=== PATIENT | male | born 1955 | race Caucasian/White ===

== ENCOUNTER 2017-01-18 18:27 | Emergency (ER) | payer MEDICARE, OTHER ==
[~2017-01-18] VITALS: Ht 170.2 cm; Wt 104.3 kg
[2017-01-18] MEDS ORDERED: PANT40TA4 PO (19:04)
[2017-01-18] MEDS ORDERED: ASPI1CPM PO (19:04)
[2017-01-18] MEDS ORDERED: INSU100V7 SQ (19:04)
[2017-01-18] MEDS ORDERED: TAMS0.4C34 PO (19:04)
[2017-01-18] MEDS ORDERED: ATOR80TA PO (19:04)
[2017-01-18] MEDS ORDERED: INSU100C SQ (19:04)
[2017-01-18] MEDS ORDERED: MAG355OR18 PO (19:04)
[2017-01-18] MEDS ORDERED: AMLO10TA2 PO (19:04)
[2017-01-18] MEDS ORDERED: METO100T3 PO (19:04)
[2017-01-18] MEDS ORDERED: CLOP75TA15 PO (19:04)
[2017-01-18] MEDS ORDERED: ALBU8.5H8 IH (19:04)
[2017-01-18] MEDS ORDERED: BLOO-140 IN (19:04)
[2017-01-18] MEDS ORDERED: IV NORMAL SALINE 1000 ML BAG IV ONE (19:15)
[2017-01-18 19:58] LABS: BASOPHILS % (AUTO) 0.4 % (0.0-2.0); EOSINOPHILS # (AUTO) 0.3 K/uL (0.0-0.7); EOSINOPHILS % (AUTO) 3.3 % (0.0-7.0); HEMATOCRIT 47.2 % (40-50); HEMOGLOBIN 15.2 G/DL (14.0-18.0); LYMPHOCYTES # (AUTO) 2.5 K/UL (0.8-4.8); LYMPHOCYTES % (AUTO) 28.6 % (20.5-51.5); MEAN CORPUSCULAR HEMOGLOBIN 29.7 UUG (27.0-31.0); MEAN CORPUSCULAR HGB CONC 32 g/dL (32.0-37.0); MEAN CORPUSCULAR VOLUME 92.1 FL (82.0-92.0); MONOCYTES # (AUTO) 0.6 K/UL (0.1-1.30); MONOCYTES % (AUTO) 6.6 % (0.0-11.0); NEUTROPHILS # (AUTO) 5.3 K/UL (1.8-8.9); NEUTROPHILS % (AUTO) 61.1 % (38.5-71.5); PLATELET COUNT (AUTO) 207 K/UL (150-450); RED BLOOD CELL COUNT(AUTO) 5.13 MIL/UL (4.7-6.1); WHITE BLOOD COUNT (AUTO) 8.7 K/UL (4.0-11.2)
[2017-01-18 20:05] LABS: CREATININE 1.1 mg/dL (0.6-1.3); POTASSIUM 4.3 mmol/L (3.5-5.1)
[2017-01-18 20:11] LABS: BILIRUBIN,DIRECT 0.1 mg/dL (0.0-0.2); BILIRUBIN,TOTAL 0.5 mg/dL (0.2-1.0); TOTAL PROTEIN, SERUM 7.2 g/dL (6.4-8.2)
--- NOTE | 2017-01-18 20:28 | NUR ---
DR. ANTOINE CAVAZOS.
[2017-01-18 22:04] VITALS: BP 138/83
== END 2017-01-18 22:05 | disposition home or self-care (01) ==
LOC: ER 18:32
DX: E11.40 Type 2 diabetes mellitus with diabetic neuropathy, unspecified (principal); Z79.4 Long term (current) use of insulin; Z79.82 Long term (current) use of aspirin; I10 Essential (primary) hypertension; I25.10 Atherosclerotic heart disease of native coronary artery without angina pectoris; J45.909 Unspecified asthma, uncomplicated; N17.9 Acute kidney failure, unspecified; Z95.0 Presence of cardiac pacemaker; Z86.73 Personal history of transient ischemic attack (TIA), and cerebral infarction without residual deficits; Z95.5 Presence of coronary angioplasty implant and graft
CPT/HCPCS: 71010; 80048; 80076; 83605; 83690; 84484; 85025; 87040; 93005; 96360; 99285; A4663; J7030; 36415; 70030-TC

== ENCOUNTER 2017-01-23 19:12 | Inpatient (IN) | payer MEDICARE, OTHER ==
[~2017-01-23] VITALS: Ht 170.2 cm; Wt 111.1 kg
[~2017-01-23 19:12] MED LIST: ALBU8.5H8 IH; AMLO10TA2 PO; ASPI1CPM PO; ATOR80TA PO; BLOO-140 IN; CLOP75TA15 PO; INSU100C SQ; INSU100V7 SQ; MAG355OR18 PO; METO100T3 PO; PANT40TA4 PO; TAMS0.4C34 PO
[2017-01-23 20:07] LABS: *BILIRUBIN,URIN NEGATIVE (NEGATIVE); *BLOOD, URINE NEGATIVE (NEGATIVE); *CLARITY,URINE CLEAR (CLEAR); *COLOR,URINE YELLOW (YELLOW); *KETONES,URINE NEGATIVE (NEGATIVE); *PROTEIN,URINE NEGATIVE (NEGATIVE); *UROBILINOGEN,URINE 0.2 E.U./dl (NORMAL); LEUKOCYTE ESTERASE ,URINE NEGATIVE (NEGATIVE); NITRITE, URINE NEGATIVE (NEGATIVE); PH,URINE 5.5 (5.0-8.0)
[2017-01-23 20:25] LABS: BASOPHILS # (AUTO) 0.1 K/uL (0.0-8.0); BASOPHILS % (AUTO) 0.6 % (0.0-2.0); EOSINOPHILS # (AUTO) 0.3 K/uL (0.0-0.7); EOSINOPHILS % (AUTO) 3.2 % (0.0-7.0); HEMOGLOBIN 14.7 G/DL (14.0-18.0); LYMPHOCYTES # (AUTO) 2.6 K/UL (0.8-4.8); LYMPHOCYTES % (AUTO) 28.6 % (20.5-51.5); MEAN CORPUSCULAR HEMOGLOBIN 31.2 UUG (27.0-31.0); MEAN CORPUSCULAR HGB CONC 33 g/dL (32.0-37.0); MEAN CORPUSCULAR VOLUME 93.2 FL (82.0-92.0); MONOCYTES # (AUTO) 0.6 K/UL (0.1-1.30); NEUTROPHILS # (AUTO) 5.6 K/UL (1.8-8.9); NEUTROPHILS % (AUTO) 60.6 % (38.5-71.5); PLATELET COUNT (AUTO) 251 K/UL (150-450); RED BLOOD CELL COUNT(AUTO) 4.73 MIL/UL (4.7-6.1); WHITE BLOOD COUNT (AUTO) 9.2 K/UL (4.0-11.2)
[2017-01-23 20:29] LABS: CREATININE 1.2 mg/dL (0.6-1.3); POTASSIUM 4.1 mmol/L (3.5-5.1)
[2017-01-23 20:33] LABS: UGLUCOSE 2+ (NEGATIVE)
[2017-01-23 20:35] LABS: WBC,URINE NONE SEEN /HPF (0-3)
[2017-01-23 20:36] LABS: BILIRUBIN,DIRECT 0.1 mg/dL (0.0-0.2); BILIRUBIN,TOTAL 0.5 mg/dL (0.2-1.0); TOTAL PROTEIN, SERUM 7.3 g/dL (6.4-8.2)
--- NOTE | 2017-01-23 21:41 | NUR ---
JONNY speaking with Dr. AGUILAR
--- NOTE | 2017-01-23 22:44 | NUR ---
Pt. admitted to TELE, under care of Dr. AGUILAR Belongs List completed
--- NOTE | 2017-01-23 23:10 | NUR ---
Received patient from ED via gurney awake and alert in no acute distress, admission assessment done. Page Dr. Cha for admission orders.
[2017-01-24] VITALS: BP 129/78
--- NOTE | 2017-01-24 00:10 | NUR ---
Second called placed for Dr. Cha for admission orders. Patient quietly sleeping at this time SR on tele monitor with BBB HR 60'S, BP stable 129/78 pt afebrile with no distress noted. Continue to await call back from doctor
[2017-01-24 04:22] VITALS: BP 125/69
[2017-01-24] MEDS ORDERED: ALPRAZOLAM 0.25 MG TABLET PO PRN (05:30)
--- NOTE | 2017-01-24 05:45 | NUR ---
Dr. Cha returned paged and orders were received. patient slepted well during the night with status unchanged, continue to monitor and with POC.
--- NOTE | 2017-01-24 07:30 | NUR ---
PT RECEIVED IN BED SLEEPING,V/S ARE STABLE ,NO S/S OF SOB NOTED.BREAKFAST SERVED .TOLERATED WELL.
[2017-01-24] MEDS ORDERED: ALBUTEROL SULFATE 8 GM HFA.AER.AD IH PRN (07:45)
[2017-01-24] MEDS ORDERED: AMLODIPINE 10 MG TABLET PO PRN (07:45)
[2017-01-24] MEDS ORDERED: ALBUTEROL SULFATE 2.5 MG/3 ML NEBU NEB PRN (08:30)
[2017-01-24] MEDS: TAMSULOSIN HCL 0.4 MG CAP.SR.24H PO SCH (08:31)
[2017-01-24] MEDS: CLOPIDOGREL 75 MG TABLET PO SCH (08:31)
[2017-01-24] MEDS: PANTOPRAZOLE SODIUM 40 MG TABLET.DR PO SCH ×2 (08:31→16:27)
[2017-01-24] MEDS: METOPROLOL TARTRATE 100 MG TABLET PO SCH ×2 (08:31→16:27)
[2017-01-24] MEDS ORDERED: BLOOD SUGAR DIAGNOSTIC 1 EACH STRIP VI SCH (09:00)
[2017-01-24] MEDS: ASPIRIN/DIPYRIDAMOLE 25/200 MG CAPSULE PO SCH ×2 (09:00→16:28)
--- NOTE | 2017-01-24 09:00 | NUR ---
PT SEEN BY DR FELDER
[2017-01-24] MEDS ORDERED: DEXTROSE 50% 50 ML DISP.SYRIN IV PRN (09:15)
[2017-01-24] MEDS: BLOOD SUGAR DIAGNOSTIC 1 EACH STRIP VI SCH ×4 (09:25→20:36)
[2017-01-24 11:00] VITALS: BP 120/54
[2017-01-24] MEDS: INSULIN REGULAR, HUMAN 300 UNIT/3 ML VIAL SQ PRN ×3 (11:43→20:34)
[2017-01-24 15:03] VITALS: BP 136/83
--- NOTE | 2017-01-24 17:55 | NUR ---
PT IS RESTING AT THIS TIME ,NO NEW NEEDS NOTED.SINUS ON TELE
--- NOTE | 2017-01-24 19:00 | NUR ---
RECEIVED IN BED ALERT ORIENTED, CONTINENT OF BOWEL AND BLADDER, NO SOB NO CHEST PAIN NOTED, NO COMPLAIN OF PAIN AT THIS TIME. CONT TO MONITOR.
[2017-01-24 20:00] VITALS: BP 110/60
[2017-01-24] MEDS: ATORVASTATIN 40 MG TABLET PO SCH (20:25)
[2017-01-24] MEDS: MAG HYDROX/AL HYDROX/SIMETH 30 ML LIQUID UDC PO SCH (20:26)
[2017-01-24] MEDS: INSULIN DETEMIR 300 UNIT/3 ML CARTRIDGE SQ SCH (20:34)
[2017-01-24] MEDS ORDERED: INSULIN GLARGINE,HUM 300 UNITS/3 ML CARTRIDGE SQ SCH (21:00)
[2017-01-24] MEDS: ALPRAZOLAM 0.5 MG TABLET PO PRN (21:06)
[2017-01-25] VITALS: BP 120/72
[2017-01-25 04:00] VITALS: BP 142/74
--- NOTE | 2017-01-25 05:45 | NUR ---
PATIENT SLEPT MOST OF THE NIGHT, CPAP WAS ON ALL NIGHT, NO COMPLAIN OF PAIN, NO SOB NO CHEST PAIN NOTED, USES URINAL FOR BLADDER ELIMINATION, PATIENT RYTHM IS SINUS RYTHM, CONT TO MONITOR.
[2017-01-25] MEDS: BLOOD SUGAR DIAGNOSTIC 1 EACH STRIP VI SCH ×4 (06:29→20:48)
[2017-01-25] MEDS: INSULIN REGULAR, HUMAN 300 UNIT/3 ML VIAL SQ PRN ×3 (07:11→20:53)
[2017-01-25] MEDS: INSULIN LISPRO 1000 UNITS/10 ML VIAL(HUMALOG) SQ SCH ×3 (07:37→17:03)
--- NOTE | 2017-01-25 07:40 | NUR ---
RECEIVED IN BED ALERT ORIENTED, CONTINENT OF BOWEL AND BLADDER, NO SOB NO CHEST PAIN NOTED, NO COMPLAIN OF PAIN AT THIS TIME. CONT TO MONITOR.
[2017-01-25] MEDS: CLOPIDOGREL 75 MG TABLET PO SCH (08:02)
[2017-01-25] MEDS: ASPIRIN/DIPYRIDAMOLE 25/200 MG CAPSULE PO SCH ×2 (08:02→16:42)
[2017-01-25] MEDS: TAMSULOSIN HCL 0.4 MG CAP.SR.24H PO SCH (08:02)
[2017-01-25] MEDS: METOPROLOL TARTRATE 100 MG TABLET PO SCH ×2 (08:02→16:42)
[2017-01-25] MEDS: PANTOPRAZOLE SODIUM 40 MG TABLET.DR PO SCH ×2 (08:02→16:42)
[2017-01-25 11:03] VITALS: BP 128/70
[2017-01-25 15:12] VITALS: BP 131/56
--- NOTE | 2017-01-25 17:46 | NUR ---
PT IS RESTING AT THIS TIME ,NO NEW NEEDS NOTED.
--- NOTE | 2017-01-25 19:00 | NUR ---
RECEIVED PATIENT IN BED, ALERT ORIENTED, NO SOB NO CHEST PAIN NOTED, NO S/S OF HYPO/HYPERGLYCEMIA NOTED, CALL LIGHT WITHIN REACH. CONT TO MONITOR. PATIENT REQUEST XANAX FOR SLEEP, WILL MEDICATION PATIENT PRESCRIBED TIME.
[2017-01-25 19:52] VITALS: BP 151/68
[2017-01-25] MEDS: ALPRAZOLAM 0.5 MG TABLET PO PRN (20:41)
[2017-01-25] MEDS: MAG HYDROX/AL HYDROX/SIMETH 30 ML LIQUID UDC PO SCH (20:43)
[2017-01-25] MEDS: ATORVASTATIN 40 MG TABLET PO SCH (20:43)
--- NOTE | 2017-01-25 21:00 | NUR ---
PATIENT REFUSED MAALOX MEDICATION STATED HE DOESNT NEED IT.
[2017-01-25] MEDS: INSULIN DETEMIR 300 UNIT/3 ML CARTRIDGE SQ SCH (21:06)
--- NOTE | 2017-01-25 22:07 | NUR ---
Pt placed on BIPAP Vision per request. Settings IPAP 20, EPAP 12, set resp. rate 12 and FIO2-21%. No resp. distress noted. Pt to be monitored throughout the shift. Vision alarm parameters have been checked and remain audible at this time.
[2017-01-26 04:11] VITALS: BP 139/76
--- NOTE | 2017-01-26 05:47 | NUR ---
PATIENT SLEPT MOST OF THE NIGHT, NO SOB NO CHEST PAIN, NO COMPLAIN OF PAIN NOR DISCOMFORT, BIPAP WAS USED MOST OF THE NIGHT, NO S/S OF DISTRESS.
[2017-01-26] MEDS: BLOOD SUGAR DIAGNOSTIC 1 EACH STRIP VI SCH ×4 (06:16→20:37)
--- NOTE | 2017-01-26 06:39 | NUR ---
Pt removed from BIPAP per pt request. Pt is on room air and is in no resp. distress noted at this time. Pt is asleep at this time.
[2017-01-26] MEDS: TAMSULOSIN HCL 0.4 MG CAP.SR.24H PO SCH (08:12)
[2017-01-26] MEDS: PANTOPRAZOLE SODIUM 40 MG TABLET.DR PO SCH ×2 (08:12→17:25)
[2017-01-26] MEDS: METOPROLOL TARTRATE 100 MG TABLET PO SCH ×2 (08:12→17:26)
[2017-01-26] MEDS: ASPIRIN/DIPYRIDAMOLE 25/200 MG CAPSULE PO SCH ×2 (08:13→17:26)
[2017-01-26] MEDS: CLOPIDOGREL 75 MG TABLET PO SCH (08:13)
[2017-01-26] MEDS: INSULIN LISPRO 1000 UNITS/10 ML VIAL(HUMALOG) SQ SCH ×3 (08:16→17:28)
[2017-01-26] MEDS: INSULIN REGULAR, HUMAN 300 UNIT/3 ML VIAL SQ PRN ×4 (08:18→20:43)
[2017-01-26 11:10] VITALS: BP 148/74
--- NOTE | 2017-01-26 13:00 | NUR ---
SPOKE WITH SEKOU AT [facility], & ALL INFORMATION FAXED. WALL SCRAPER SUMA RETURNED THE CALL & STATED THAT IT LOOKS LIKE HE USED UP ALL SNF DAYS. UNABLE TO ACCEPT PATIENT AT THIS TIME.
[2017-01-26 16:04] VITALS: BP 138/80
--- NOTE | 2017-01-26 19:00 | NUR ---
RECEIVED PATIENT DANGLE FEET FROM THE BED, NO SOB NO CHEST PAIN, NO S/S OF HYPO/PERGYLCEMIA NOTED, CALL LIGHT WITHIN REACH.
--- NOTE | 2017-01-26 19:04 | NUR ---
PT IS LAYING IN BED COMFORTABLY. NO S/S OF RESPIRATORY DISTRESS NOTED. NO PAIN NOTED. ALL SAFETY NEEDS ARE MET. IV INTACT/PATENT. NO S/S OF HYPERGLYCEMIA.
[2017-01-26 19:30] VITALS: BP 144/86
[2017-01-26] MEDS: ATORVASTATIN 40 MG TABLET PO SCH (20:33)
[2017-01-26] MEDS: ALPRAZOLAM 0.5 MG TABLET PO PRN (20:35)
[2017-01-26] MEDS: INSULIN DETEMIR 300 UNIT/3 ML CARTRIDGE SQ SCH (20:43)
[2017-01-26] MEDS: MAG HYDROX/AL HYDROX/SIMETH 30 ML LIQUID UDC PO SCH (21:00)
--- NOTE | 2017-01-27 04:57 | NUR ---
PATIENT SLEPT MOST OF THE NIGHT, USED BIPAP TOLERATE WELL, NO SOB NO CHEST PAIN NOTED, CALL LIGHT WITHIN REACH. CONT TO MONITOR.
[2017-01-27 05:13] VITALS: BP 103/67
[2017-01-27] MEDS: BLOOD SUGAR DIAGNOSTIC 1 EACH STRIP VI SCH (06:14)
--- NOTE | 2017-01-27 06:20 | NUR ---
Pt removed from BIPAP per pt request. Pt is on room air and is in no resp. distress noted at this time. RN WG aware and notified.
[2017-01-27] MEDS: INSULIN REGULAR, HUMAN 300 UNIT/3 ML VIAL SQ PRN (08:18)
[2017-01-27] MEDS: INSULIN LISPRO 1000 UNITS/10 ML VIAL(HUMALOG) SQ SCH (08:19)
--- NOTE | 2017-01-27 08:30 | NUR ---
PT. REFUSING TO WAIT FOR SNF PLACEMENT--FOR CONTINUED PT. FOR STRENGTHENING--SO WILL SIGN OUT AMA. DR. FELDER CALLED---AWAITING CALL BACK. PT. STATES THAT HE WILL GO DIRECTLY TO PCP OFFICE FROM HOSPITAL. [id number]--PT. DISCHARGED TO FRIEND VIA W/C TO PRIVATE CAR TO GO TO PCP OFFICE.
== END 2017-01-27 08:45 | disposition left against medical advice (07) | DRG 57 ==
LOC: ER 19:13 → TELE 22:49 → MED 01-25 16:25
PROVIDERS: ADMIT Internal Medicine; ATTEND Internal Medicine
PROC: 5A09457 Assistance with Respiratory Ventilation, 24-96 Consecutive Hours, Continuous Positive Airway Pressure (ICD-10-PCS; principal; 2017-01-24)
DX: I69.354 Hemiplegia and hemiparesis following cerebral infarction affecting left non-dominant side (principal); E11.65 Type 2 diabetes mellitus with hyperglycemia; I11.9 Hypertensive heart disease without heart failure; E66.01 Morbid (severe) obesity due to excess calories; I69.321 Dysphasia following cerebral infarction; I69.392 Facial weakness following cerebral infarction; Z79.02 Long term (current) use of antithrombotics/antiplatelets; Z79.899 Other long term (current) drug therapy; Z79.4 Long term (current) use of insulin; R26.9 Unspecified abnormalities of gait and mobility; Z68.38 Body mass index [BMI] 38.0-38.9, adult; R29.6 Repeated falls; G47.30 Sleep apnea, unspecified; I25.10 Atherosclerotic heart disease of native coronary artery without angina pectoris; Z95.0 Presence of cardiac pacemaker; N40.0 Benign prostatic hyperplasia without lower urinary tract symptoms; I70.0 Atherosclerosis of aorta; J45.909 Unspecified asthma, uncomplicated; I51.7 Cardiomegaly
CPT/HCPCS: 36415; 70030-TC; 70450; 71010; 84443; 85025; 85730; 93005; 94660; A4663; J1815

== ENCOUNTER 2017-01-29 15:04 | Emergency (ER) | payer MEDICARE, OTHER ==
[~2017-01-29] VITALS: Ht 162.6 cm; Wt 86.2 kg
--- NOTE | 2017-01-29 15:20 | NUR ---
CHLOE, [facility] WELDING SUPERVISOR SPOKE W/ PT IN WAITING ROOM PER PT REQUEST. PT REQUESTED TO BE ADMITTED TO HOSPITAL AND BE PLACED IN A RETIREMENT, ER AWARE.
[2017-01-29 16:14] LABS: POTASSIUM 4.1 mmol/L (3.5-5.1)
[2017-01-29 16:15] LABS: BASOPHILS % (AUTO) 0.3 % (0.0-2.0); EOSINOPHILS # (AUTO) 0.4 K/uL (0.0-0.7); EOSINOPHILS % (AUTO) 3.2 % (0.0-7.0); HEMATOCRIT 45.2 % (40-50); HEMOGLOBIN 15.1 G/DL (14.0-18.0); LYMPHOCYTES # (AUTO) 2.1 K/UL (0.8-4.8); LYMPHOCYTES % (AUTO) 18.8 % (20.5-51.5); MEAN CORPUSCULAR HGB CONC 33 g/dL (32.0-37.0); MEAN CORPUSCULAR VOLUME 92.7 FL (82.0-92.0); MONOCYTES # (AUTO) 0.7 K/UL (0.1-1.30); MONOCYTES % (AUTO) 6.2 % (0.0-11.0); NEUTROPHILS # (AUTO) 7.9 K/UL (1.8-8.9); NEUTROPHILS % (AUTO) 71.5 % (38.5-71.5); PLATELET COUNT (AUTO) 216 K/UL (150-450); RED BLOOD CELL COUNT(AUTO) 4.88 MIL/UL (4.7-6.1); WHITE BLOOD COUNT (AUTO) 11.1 K/UL (4.0-11.2)
[2017-01-29 16:26] LABS: BILIRUBIN,DIRECT 0.1 mg/dL (0.0-0.2); BILIRUBIN,TOTAL 0.8 mg/dL (0.2-1.0); TOTAL PROTEIN, SERUM 7.6 g/dL (6.4-8.2)
[2017-01-29] MEDS ORDERED: METO100T7 PO (16:26)
[2017-01-29] MEDS ORDERED: METF850T2 PO (16:26)
[2017-01-29] MEDS ORDERED: NITR0.4T SL (16:26)
[2017-01-29] MEDS ORDERED: [UNRECOGNIZED DRUG - OTHER] IH (16:26)
[2017-01-29] MEDS ORDERED: ICOS1CAP PO (16:26)
[2017-01-29] MEDS ORDERED: CARV3.122 PO (16:26)
[2017-01-29] MEDS ORDERED: LISI40TA4 PO (16:26)
[2017-01-29] MEDS ORDERED: ALPR2TAB7 PO (16:26)
--- NOTE | 2017-01-29 16:39 | NUR ---
suze myers talked to dr. patel
--- NOTE | 2017-01-29 16:51 | NUR ---
Patient discharged to home in stable conditon. Written and verbal after care instructions given. Patient verbalizes understanding of instructions.
[2017-01-29 16:52] VITALS: BP 141/77
== END 2017-01-29 16:53 | disposition home or self-care (01) ==
LOC: ER 15:04
DX: M79.661 Pain in right lower leg (principal); M79.662 Pain in left lower leg; I45.10 Unspecified right bundle-branch block; I10 Essential (primary) hypertension; I25.10 Atherosclerotic heart disease of native coronary artery without angina pectoris; E11.9 Type 2 diabetes mellitus without complications; J45.909 Unspecified asthma, uncomplicated; Z95.0 Presence of cardiac pacemaker; Z86.73 Personal history of transient ischemic attack (TIA), and cerebral infarction without residual deficits; E66.01 Morbid (severe) obesity due to excess calories; Z59.0 Homelessness; Z79.82 Long term (current) use of aspirin; Z79.4 Long term (current) use of insulin
CPT/HCPCS: 36415; 70030-TC; 71010; 83690; 85025; 85730; 93005; A4663